=== PATIENT | male | born 1960 | race Caucasian/White ===

== ENCOUNTER 2016-07-14 16:31 | Emergency (ER) | payer SELFPAY ==
[~2016-07-14] VITALS: Ht 177.8 cm; Wt 88.0 kg
[2016-07-14 16:40] VITALS: TEMP 36.9; Ht 177.8 cm; Wt 88.0 kg
[2016-07-14 17:21] VITALS: O2SAT 98
[2016-07-14 17:24] LABS: BASO % 0.2 %; BASO ABS # 0.03 K/uL (0-0.2); COMPLETE YES; EOS % 0.7 %; HEMATOCRIT 46.5 % (42-52); IG% 1.2 %; LYMPH % 24.6 %; LYMPH ABS # 3.14 K/uL (1.2-3.4); MEAN CELL VOLUME 83.2 fL (80-100); MEAN CORPUSCULAR HEMOGLOBIN 29.3 pg (25-34); MEAN CORPUSCULAR HGB CONC 35.3 g/dl (32-36); MEAN PLATELET VOLUME 9.6 fL (7.4-10.4); MONO % 7.6 %; NEUT % 65.7 %; PLATELET COUNT 273 K/uL (130-400); RED BLOOD COUNT 5.59 M/uL (4.7-6.1); WHITE BLOOD COUNT 12.75 K/uL (4.8-10.8)
[2016-07-14 17:37] LABS: BLOOD UREA NITROGEN 17 mg/dl (7-18); BUN/CREATININE RATIO 21.1 (10-20); CALCIUM 9.1 mg/dl (8.5-10.1); CARBON DIOXIDE 24 mmol/L (21-32); CHLORIDE 108 mmol/L (98-107); CREATININE 0.82 mg/dl (0.60-1.40); GLUCOSE 96 mg/dl (70-99); POTASSIUM 3.7 mmol/L (3.5-5.1); SODIUM 142 mmol/L (136-145)
[2016-07-14 17:41] LABS: CKMB/CK RATIO 3.3 (0-3.0)
--- NOTE | 2016-07-14 17:57 | DIAGNOSTIC IMAGING REPORT ---
CHEST ONE VIEW PORTABLE HISTORY: Atypical Chest Pain COMPARISON: None. FINDINGS: The lungs are clear. Cardiac silhouette is top normal in size. No pleural effusions. No pneumothorax. IMPRESSION: No acute process. Electronically signed by: Zac Pang M.D. 07/14/2016 5:56 PM Dictated Date/Time: 07/14/2016 5:55 PM
[2016-07-14] MEDS ORDERED: GLUCTAB7 PO (18:21)
[2016-07-14] MEDS ORDERED: FINA5TAB PO (18:21)
[2016-07-14 19:00] VITALS: BP 184/76; PULSE 74; O2SAT 96
--- NOTE | 2016-07-14 23:30 | EMERGENCY ROOM VISIT NOTE ---
History Report prepared by [place]: Gracie Adamson Under the Supervision of: Dr. Ron Alanis D.O. First contact with patient: 16:58 Chief Complaint: CARDIAC ASSESSMENT Stated Complaint: SENT BY DR Mccollum/TEST RESULTS History of Present Illness The patient is a 56 year old male who presents to the Emergency Room with complaints of a cardiac assessment that he was made aware of earlier today. He is in minimal discomfort. The patient was at his PCP to get his sciatica evaluated. He notes that he has been having pain in his leg which radiates up into his hip. He states that his PCP was concerned because he heard an irregular heartbeat on auscultation. The patient's PCP then performed an EKG and he was concerned by what he saw, so he sent him over to the ED. the PCP was concerned because of the enlarged R waves along with the PVCs. The patient denies any recent chest pain, shortness of breath, nausea, vomiting, diarrhea, and lower extremity pain or edema. 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 He states that he was only going to his PCP to get his sciatica evaluated and had no other complaints. The patient has a history of hypertension, but denies any history of heart disease, diabetes, blood clots, hyperlipidemia, recent trips or surgeries, and aortic problems. Source of History: patient Onset: earlier today Position: chest Symptom Intensity: minimal Quality: other (cardiac assessment) Associated Symptoms: No SOB, No chest pain, No diarrhea, No nausea, No vomiting Note: no chest pain or shortness of breath with exertion, no lower extremity pain or edema Review of Systems See HPI for pertinent positives & negatives. A total of 10 systems reviewed and were otherwise negative. Past Medical & Surgical Medical Problems: (1) Hypertension Family History No pertinent family history Social History Smoking Status: Never Smoker Marital Status: Housing Status: lives with family Current/Historical Medications Scheduled Finasteride (Proscar), 5 MG PO DAILY Ppxoditcsap-Qftjayxyxbs-Jsn C- (Glucosamine Chondroitin), 1 TAB PO DAILY Allergies Coded Allergies: Iodine (Verified Allergy, Severe, SHAKY, SWEATY, 07/14/16) Physical Exam Vital Signs Date Time Temp Pulse Resp B/P Pulse Ox O2 Delivery O2 Flow Rate FiO2 07/14/16 19:00 74 18 184/76 96 07/14/16 18:35 79 20 215/70 98 Room Air 07/14/16 18:12 78 07/14/16 17:21 98 Room Air 07/14/16 16:40 36.9 78 18 191/77 96 Room Air Physical Exam GENERAL: alert, sitting up in bed, well appearing, well nourished, no acute distress, non-toxic EYE EXAM: normal conjunctiva OROPHARYNX: no exudate, no erythema, lips, buccal mucosa, and tongue normal and mucous membranes are moist NECK: supple, no nuchal rigidity, no adenopathy, non-tender LUNGS: Clear to auscultation. Normal chest wall mechanics HEART: no murmurs, S1 normal and S2 normal ABDOMEN: abdomen soft, non-tender, normo-active bowel sounds, no palpable pulsatile masses, no rebound or guarding. BACK: Back is symmetrical on inspection and there is no deformity, no midline tenderness, no CVA tenderness. SKIN: no rashes and no bruising UPPER EXTREMITIES: upper extremities are grossly normal, radial pulses equal bilaterally. LOWER EXTREMITIES: No pitting edema, calves equal bilaterally. NEURO EXAM: Normal sensorium, cranial nerves II-XII grossly intact, normal speech, no gross weakness of arms, no gross weakness of legs. Medical Decision & Procedures ER Provider Diagnostic Interpretation: Xray results per the radiologist and my interpretation. CHEST ONE VIEW PORTABLE IMPRESSION: No acute process. Electronically signed by: Zac Pang M.D. 07/14/2016 5:56 PM Dictated Date/Time: 07/14/2016 5:55 PM Laboratory Results 07/14/16 17:00 Red Blood Count 5.59, Mean Corpuscular Volume 83.2, Mean Corpuscular Hemoglobin 29.3, Mean Corpuscular Hemoglobin Concent 35.3, Mean Platelet Volume 9.6, Neutrophils (%) (Auto) 65.7, Lymphocytes (%) (Auto) 24.6, Monocytes (%) (Auto) 7.6, Eosinophils (%) (Auto) 0.7, Basophils (%) (Auto) 0.2, Neutrophils # (Auto) 8.37, Lymphocytes # (Auto) 3.14, Monocytes # (Auto) 0.97, Eosinophils # (Auto) 0.09, Basophils # (Auto) 0.03 07/14/16 17:00 Test 07/14/16 17:00 White Blood Count 12.75 K/uL (4.8-10.8) Red Blood Count 5.59 M/uL (4.7-6.1) Hemoglobin 16.4 g/dL (14.0-18.0) Hematocrit 46.5 % (42-52) Mean Corpuscular Volume 83.2 fL (80-100) Mean Corpuscular Hemoglobin 29.3 pg (25-34) Mean Corpuscular Hemoglobin Concent 35.3 g/dl (32-36) Platelet Count 273 K/uL (130-400) Mean Platelet Volume 9.6 fL (7.4-10.4) Neutrophils (%) (Auto) 65.7 % Lymphocytes (%) (Auto) 24.6 % Monocytes (%) (Auto) 7.6 % Eosinophils (%) (Auto) 0.7 % Basophils (%) (Auto) 0.2 % Neutrophils # (Auto) 8.37 K/uL (1.4-6.5) Lymphocytes # (Auto) 3.14 K/uL (1.2-3.4) Monocytes # (Auto) 0.97 K/uL (0.11-0.59) Eosinophils # (Auto) 0.09 K/uL (0-0.5) Basophils # (Auto) 0.03 K/uL (0-0.2) RDW Standard Deviation 40.0 fL (36.4-46.3) RDW Coefficient of Variation 13.3 % (11.5-14.5) Immature Granulocyte % (Auto) 1.2 % Immature Granulocyte # (Auto) 0.15 K/uL (0.00-0.02) D-Dimer < 190 ug/L FEU (0-500) Anion Gap 10.0 mmol/L (3-11) Est Creatinine Clear Calc Drug Dose 109.7 ml/min Estimated GFR () 113.0 Estimated GFR (Non- 97.5 BUN/Creatinine Ratio 21.1 (10-20) Calcium Level 9.1 mg/dl (8.5-10.1) Total Creatine Kinase 89 U/L (39-308) Creatine Kinase MB 2.9 ng/ml (0.5-3.6) Creatine Kinase MB Ratio 3.3 (0-3.0) Troponin I < 0.015 ng/ml (0-0.045) Laboratory results per my review. ECG Indication: other (EKG abnormalities) Rate (beats per minute): 72 Rhythm: sinus rhythm Findings: ST depression (Lateral), other (normal axis, LVH) Comparison ECG Date: 07/20/2012 Change: no significant change (ST depressions in the lateral leads and LVH are both present) ED Course ED COURSE: Vital signs were reviewed and showed hypertension. The patients medical record was reviewed The above diagnostic studies were performed and reviewed. ED treatments and interventions as stated above. 1703: The patient was evaluated in room B8. A complete history and physical examination was performed. 1705: I reviewed the patient's case with Dr. Waller - [facility]. He sent the patient into the ED because he was concerned about the patient's R wave progression and PVCs on his EKG. He discussed the patient's case with Dr. Mcclendon - Cardiology who said that because of the large R waves and PVCs he recommended coming into the ED for evaluation. The patient was not experiencing chest pain or shortness of breath at that time. 1727: I reviewed the patient's case with Dr. Fenton - Cardiology. He is going to review the patient's EKG and call me back. 1750: Dr. Fenton called back and said that he feels that the patient can be discharged and have an outpatient echocardiogram as long as he is asymptomatic. 1838: Upon reevaluation, the patient is doing well. I discussed my findings with the patient and he understands and agrees with the treatment plan. Based on the patients age, coexisting illnesses, exam and lab findings the decision to treat as an outpatient was made. The patient remained stable while under my care. The patient appeared well at the time of discharge. Medical Decision Differential diagnoses includes but is not limited to acute coronary syndrome, myocardial infarction, pericarditis, pulmonary embolus, aortic dissection, pneumonia, pneumothorax, musculoskeletal, shingles, esophageal. Patient is a 56-year-old male with past medical history of hypertension that was referred in by his primary care doctor. He presented to his primary care doctor for leg pain. He denies any other complaints. He was referred in with a concern for an EKG which showed PVCs and large R waves. His primary care doctor's request was to obtain an echo. He denies any exertional chest pain or shortness of breath. No abdominal pain or back pain. 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 He never gets any chest pain or shortness of breath. Vitals were remarkable for hypertension. Upon evaluation he has no history to suggest dissection or ACS. EKG was obtained and showed no PVCs. It does show LVH with heart strain which is consistent with his old EKG which was brought in with the patient from his PCP. I did have my on-call stopper maker review of his EKG and he agreed that since the patient is asymptomatic he can be followed up as an outpatient. We were unable to obtain an echo as it was after 5 PM and as he is asymptomatic it was deemed not necessary at this time. Labs show a mild leukocytosis 12,000. No anemia. BMP was unremarkable. Troponin was negative. Troponin was not repeated as the patient had no chest pain or shortness of breath. D-dimer was negative for any blood clots. Chest x-ray showed an unremarkable mediastinum. Radial pulses were equal bilaterally. I offered to patient observation for possible echo and evaluation by cardiology in the morning but he preferred to be discharged. I felt this was reasonable as he has no complaints. He was extremely hypertensive but he declined treatment as he notes he has been placed on at least 15 medications without success and then make him feel very tired. I recommended following up with his primary care doctor and possible cardiology for this. Discussed with Pt concerning signs and symptoms to watch out for. Pt was instructed to follow up with their PCP and discussed with the patient their option to return to the ED at anytime for persistent or worsening symptoms. The appropriate anticipatory guidance and out- patient management, including indications for return to the emergency department , were explained at length to the patient and understood. Consults Time Called: 170 Consulting Physician: Dr. Waller - Family Medicine Returned Call: 1705 I reviewed the patient's case with Dr. Waller - Family Medicine. He sent the patient into the ED because he was concerned about the patient's R wave progression and PVCs on his EKG. He discussed the patient's case with Dr. Mcclendon - Cardiology who said that because of the large R waves and PVCs he recommended coming into the ED for evaluation. The patient was not experiencing chest pain or shortness of breath at that time. Additional Consults: Time Called: 171 Consulted Physician: Dr. Fenton - Cardiology Returned Call: 1727 Additional Comments: I reviewed the patient's case with Dr. Eliceo River. He is going to review the patient's EKG and call me back. Impression Primary Impression: EKG abnormalities Additional Impression: Hypertension Scribe Attestation The scribe's documentation has been prepared under my direction and personally reviewed by me in its entirety. I confirm that the note above accurately reflects all work, treatment, procedures, and medical decision making performed by me. Departure Information Dispostion Home / Self-Care Referrals Darius Waller DO (PCP) Forms IMPORTANT VISIT INFORMATION Patient Instructions ED Hypertension Conf Out Of Control, My [facility] Additional Instructions Please follow up with your primary care doctor with in the next 24 hours. Any worsening of your symptoms, please return to the ED immediately. This includes chest pain, shortness of breath, passing out, weakness or numbness in your arms or legs, or any other concerning signs or symptoms from your standpoint. Please follow up with your primary care doctor tomorrow or Sunday morning for an outpatient echo. You were also found to have an elevated blood pressure. He should have this followed up by your primary care doctor as well. Problem Qualifiers Additional Impression: Hypertension Hypertension type: unspecified secondary hypertension Qualified Codes: I15.9 - Secondary hypertension, unspecified
== END 2016-07-14 19:00 | disposition home or self-care (01) ==
LOC: C.EDB 16:32
DX: R94.31 Abnormal electrocardiogram [ECG] [EKG] (principal); I15.9 Secondary hypertension, unspecified